=== PATIENT | male | born 1965 ===

== ENCOUNTER 2017-03-30 16:54 | Emergency (ER) | payer OTHER ==
[2017-03-30 17:39] VITALS: BP 145/78
--- NOTE | 2017-03-30 18:30 | UC ---
Respiratory Complaint HPI - HPI Summary HPI Summary: 52M presents with cough and eye discharge for 4 days. He states his symptoms are getting worst. He states he has been having yellow discharge from his eye and that his eye has been crusting over. He denies any change in vision. He admits to SOB with the cough and occasionally chest tightness. He states the cough has been mostly dry. He admits to sinus congestion. He denies any abdominal pain, n/v/d. He denies any sore throat or fever. He has history of HTN. <Valeri Hurtado - Last Filed: 03/30/17 20:39> <Nohemi Szymanski - Last Filed: 03/30/17 21:01> - History of Current Complaint Chief Complaint: UCRespiratory Stated Complaint: CONGESTION,EYE IRRITATION,COUGH Time Seen by Provider: 03/30/17 18:08 - Allergies/Home Medications Allergies/Adverse Reactions: Allergies Allergy/AdvReac Type Severity Reaction Status Date / Time No Known Allergies Allergy Verified 03/30/17 17:38 Home Medications: Home Medications Atenolol TAB* [Tenormin TAB* 25 MG] 25 mg PO DAILY 03/30/17 [History Confirmed 03/30/17] Lisinopril [Lisinopril 2.5 MG-] 2.5 mg PO DAILY 03/30/17 [History Confirmed ] Venlafaxine ER (NF) [Effexor ER (NF)] 150 mg PO BID 03/30/17 [History Confirmed 03/30/17] PMH/Surg Hx/FS Hx/Imm Hx Endocrine History: Other Other Endocrine History: no DM Cardiovascular History: Hypertension - Surgical History Surgical History: Yes Surgery Procedure, Year, and Place: pates to multiple broken bones, appy - Family History Known Family History: Positive: Hypertension - Social History Alcohol Use: Occasionally Substance Use Type: None Smoking Status (MU): Never Smoked Tobacco <Valeri Hurtado - Last Filed: 03/30/17 20:39> Review of Systems Eyes: Drainage, Eye Redness Respiratory: Shortness Of Breath, Cough All Other Systems Reviewed And Are Negative: Yes <Valeri Hurtado - Last Filed: 03/30/17 20:39> Physical Exam Triage Information Reviewed: Yes Appearance: Well-Appearing Vital Signs: Initial Vital Signs Temp 98.5 F 03/30/17 17:33 Pulse 82 03/30/17 17:33 Resp 18 03/30/17 17:33 BP 145/78 03/30/17 17:33 Pulse Ox 98 03/30/17 17:33 Eyes: Positive: Conjunctiva Inflamed ENT: Positive: Pharynx normal, TMs normal Neck: Positive: Supple, Nontender, No Lymphadenopathy Respiratory: Positive: Lungs clear, Normal breath sounds Cardiovascular: Positive: RRR Abdomen Description: Positive: Nontender, Soft Bowel Sounds: Positive: Present Musculoskeletal Exam: Normal Neurological Exam: Normal Psychological Exam: Normal <Valeri Hurtado - Last Filed: 03/30/17 20:39> Vital Signs: Initial Vital Signs Temp 98.5 F 03/30/17 17:33 Pulse 82 03/30/17 17:33 Resp 18 03/30/17 17:33 BP 145/78 03/30/17 17:33 Pulse Ox 98 03/30/17 17:33 <Nohemi Szymanski - Last Filed: 03/30/17 21:01> Diagnostic Evaluation - Laboratory O2 Sat by Pulse Oximetry: 98 - Radiology Xray Interpretation: No Acute Changes Radiology Interpretation Completed By: Radiologist <Valeri Hurtado - Last Filed: 03/30/17 20:39> Respiratory Course/Dx - Course Course Of Treatment: 52M presents with cough and eye discharge for 4 days. He states his symptoms are getting worst. He states he has been having yellow discharge from his eye and that his eye has been crusting over. He denies any change in vision. He admits to SOB with the cough and occasionally chest tightness. He states the cough has been mostly dry. He admits to sinus congestion. He denies any abdominal pain, n/v/d. He denies any sore throat or fever. He has history of HTN. conjunctiva injected. lungs CTA. chest xray normal. will treat with polytrim for eyes, inhaler, prednisone and cough medication. medications reviewed. patient has diagnosis of HTN and will follow up with primary about blood pressure. patient understand and agrees with plan. - Differential Dx/Diagnosis Differential Diagnosis/HQI/PQRI: Bronchitis, Lower Resp Infection, Other - conjunctivitis Provider Diagnoses: conjunctivitis, upper respiratory infection <Valeri Hurtado - Last Filed: 03/30/17 20:39> Discharge <Valeri Hurtado - Last Filed: 03/30/17 20:39> <Nohemi Szymanski - Last Filed: 03/30/17 21:01> - Discharge Plan Condition: Good Disposition: HOME Prescriptions: Albuterol HFA INHALER* [Ventolin HFA Inhaler*] 1 puff INH Q6H PRN #1 mdi PRN Reason: Cough Guaifenesin-Codeine [Guaiatussin AC] 5 ml PO Q6HR PRN #100 ml MDD 20ml PRN Reason: Cough Polymyx/Trimethoprim OPTH* [Polytrim OPHTH*] 1 drop BOTH EYES QID #1 btl predniSONE TAB* [Deltasone TAB*] 40 mg PO DAILY #5 tab Patient Education Materials: Acute Bronchitis (ED), Conjunctivitis (ED) Forms: *Work Release Referrals: No Primary Care Phys,NOPCP [Primary Care Provider] - Additional Instructions: Place 1 drop in eye four times a day for 7 days Wash hands after touching eye Take cough medication 5ml (1 teaspoon) every 6 hours as needed cough Use inhaler up to two puffs every 4-6 hours for cough Take steroid once a day for 5 days Use saline in the nose for nasal congestion Use humidifier or place warm bowls of water around the room for cough Take Tylenol or ibuprofen for pain every 6 hours Return to ED if develop any new or worsening symptoms Attestation Statement User Type: Provider - I was available for consult. This patient was seen by the JAMILA. The patient was not presented to, seen by, or examined by me. -Litzy <Nohemi Szymanski - Last Filed: 03/30/17 21:01>
--- NOTE | 2017-03-30 18:43 | RAD ---
INDICATION: Cough COMPARISON: None TECHNIQUE: PA and lateral dual-energy views were obtained. FINDINGS: Bones/Soft Tissues: There are no acute bony findings. Cardiomediastinal: The cardiomediastinal silhouette is normal. Lungs: There are no infiltrates. Pleura: There are no pleural effusions. Other: None IMPRESSION: HYPERINFLATION. NO ACTIVE DISEASE.
[2017-03-30] MEDS ORDERED: cefTRIAXone VIAL(*) 1,000 MG in NS 0.9% 50 ML* 50 ML IVPB ONE (18:59)
== END 2017-03-30 19:15 | disposition home or self-care (01) ==
LOC: UCEAST 16:54
DX: H10.30 Unspecified acute conjunctivitis, unspecified eye (principal); J06.9 Acute upper respiratory infection, unspecified; R06.02 Shortness of breath; R07.89 Other chest pain; I10 Essential (primary) hypertension
CPT/HCPCS: 71020; 99202; G0463; J0696